=== PATIENT | female | born 1990 | race African-American/Black ===

== ENCOUNTER → 2019-02-20 | Day surgery (SDC) | payer OTHER ==
[~2019-02-20] MED LIST: BECL10.6 IH; DESO1TAB15 PO; FLUO40CA2 PO; IV RINGERS,LACTATED 1000ML 1,000 ML IV SCH; LIDOCAINE 2% PF 5 ML VIAL. ONE; LORA10TA68 PO; PROPOFOL 160 ML IV ONE; VENTOLIN HFA18 GM INH
[2019-02-20 08:48] LABS: U PREG PATIENT NEGATIVE (NEG)
[2019-02-20 10:50] VITALS: BP 128/78
--- NOTE | 2019-02-21 15:06 | PATHOLOGY ---
[facility] Accession Number: [id number] . 01 Material submitted: . PART A: small bowel - SMALL BOWEL BIOPSY PART B: stomach - RANDOM GASTRIC BIOPSY PART C: esophagus - GE JUNCTION BIOPSY PART D: ileum - TERMINAL ILEUM BIOPSY PART E: cecum - NODULE AT CECUM PART F: colon - RANDOM COLON BIOPSY . 01 Clinical history: . Abdominal pain, elevated ASCA . 02 Diagnosis: A. Small bowel biopsies: - No significant pathologic abnormalities. . B. Random gastric biopsies: - Chronic gastritis, mild. . C. Gastroesophgeal junction biopsies: - Esophagitis with eosinophils. See comment. - Segments of gastric and esophagogastric mucosa showing chronic inflammation. . D. Terminal ileum biopsies: - No significant pathologic abnormalities, with two mucosal-associated lymphoid aggregates. . E. Colonc biopsies, cecum nodule: - No significant pathologic abnormalities, with several focally hyperplastic mucosal-associated lymphoid aggregates. . F. Random colon biopsies: - No significant pathologic abnormalities, with multiple focally hyperplastic mucosal-associated lymphoid aggregates. (JPM:abril; 02/21/2019) QMS/02/21/2019 . 02 Comment: Sections of the small bowel biopsy reveal segments of duodenal mucosa. Where best oriented, there are no sprue-like changes or significant inflammatory changes. . Sections of the random gastric biopsy reveal segments of gastric antral and gastric body mucosa showing congestion and mild chronic inflammation. A properly controlled immunoperoxidase stain for Helicobacter is negative for Helicobacter organisms. . Sections of the gastroesophageal junction biopsy reveal segments of squamous esophageal mucosa, and esophagogastric and gastric mucosa showing mild to moderate chronic inflammation. The squamous esophageal mucosa appears hyperplastic and shows the presence of increased intraepithelial eosinophils. Focally, there are between 20 and 30 intraepithelial eosinophils per high power field. This finding is suggestive of eosinophilic esophagitis. There is no evidence of Flores's change, dysplasia, or malignancy. . Sections of the terminal ileum biopsy reveal segments of small intestine mucosa containing two mucosal-associated lymphoid aggregates (Peyer's patch). There are no sprue-like changes or significant inflammatory changes. . Sections of the cecal nodule biopsy reveal segments of colonic mucosa containing several focally hyperplastic mucosal-associated lymphoid aggregates. There is no evidence of a chronic destructive colitis, collagenous colitis, or lymphocytic colitis. There are no adenomatous changes or evidence of malignancy. . Sections of the random colon biopsy reveal multiple segments of colonic mucosa containing multiple, focally hyperplastic, mucosal-associated lymphoid aggregates. There is no evidence of a chronic destructive colitis, collagenous colitis, or lymphocytic colitis. (JPM:abril; 02/21/2019) . . Special stain performed: Immunoperoxidase stain for Helicobacter on B1. . 02 Electronically signed: . Christ Alba MD, Pathologist NPI- [id number] . 01 Gross description: . A. Received in formalin labeled "HauserAwa Whittington, small bowel BX," are 3 segments of lara soft tissue measuring 0.9 x 0.8 x 0.2 cm in aggregate dimensions and ranging from 0.3 to 0.4 cm in maximum dimension. The specimen is submitted entirely in cassette A1. . B. Received in formalin labeled "HauserAwa Whittington, random gastric BX, rule out H. pylori," are 3 segments of lara soft tissue measuring 1.2 x 1.0 x 0.2 cm in aggregate dimensions and ranging from 0.3 to 0.7 cm in maximum dimension. The specimen is submitted entirely in cassette B1. . C. Received in formalin labeled "HauserAwa Whittington, GE junction BX," are 4 segments of lara soft tissue measuring 1.1 x 0.9 x 0.3 cm in aggregate dimensions and ranging from 0.2 to 0.6 cm in maximum dimension. The specimen is submitted entirely in cassette C1. . D. Received in formalin labeled "Hauser, Awa, terminal ileum BX," are 2 segments of lara soft tissue measuring 0.9 x 0.3 x 0.2 cm in aggregate dimensions and ranging from 0.4 to 0.5 cm in maximum dimension. The specimen is submitted entirely in cassette D1. . E. Received in formalin labeled "Hauser, Awa, cecum nodule," are 3 segments of lara soft tissue measuring 1.1 x 0.6 x 0.2 cm in aggregate dimensions and ranging from 0.2 to 0.4 cm in maximum dimension. The specimen is submitted entirely in cassette E1. . F. Received in formalin labeled "Awa Gibbs, random colon BX," are multiple segments of lara soft tissue measuring 1.5 x 0.6 x 0.2 cm in aggregate dimensions. The specimen is filtered and entirely submitted in cassette F1. (TSD; 02/20/2019) TOB/TOB . 02 Pathologist provided ICD-10: K29.50, K20.9, K63.9, R10.9 . 02 CPT . 012920, 230456, 130751, [id number], [id number], [id number], [id number] Specimen Comment: A courtesy copy of this report has been sent to Specimen Comment: [phone], . Specimen Comment: Report sent to / DR BROWNE Performed at: 01 [facility] [address], [place] [id number] MD Angel Jung MD Phone: [phone] Performed at: 02 [facility] [address] [place], [place] [id number] MD Christ Alba MD Phone: [phone]
== END | disposition home or self-care (01) ==
LOC: SURG 07:54
PROVIDERS: ATTEND Internal Medicine
DX: K29.50 Unspecified chronic gastritis without bleeding (principal); K20.0 Eosinophilic esophagitis; K64.0 First degree hemorrhoids; K63.89 Other specified diseases of intestine; K62.89 Other specified diseases of anus and rectum; F41.9 Anxiety disorder, unspecified; J45.909 Unspecified asthma, uncomplicated; Z72.89 Other problems related to lifestyle; Z98.890 Other specified postprocedural states
CPT/HCPCS: 43239; 45380; 81025; 88305; 88342; J2001; J2704; 45378